=== PATIENT | female | born 1965 | race Hispanic/Latino ===

== ENCOUNTER 2022-04-23 22:38 | Observation (INO) | payer OTHER ==
[~2022-04-23] VITALS: Ht 167.6 cm; Wt 98.4 kg
[2022-04-23] MEDS ORDERED: SODIUM CHLORIDE 0.9% 1000ML 1,000 ML IV STA (22:54)
[2022-04-23] MEDS ORDERED: ONDANSETRON HCL INJ 2MG/ML 2ML 2 MG/ML VIAL IV PRN (23:00)
[2022-04-23 23:15] LABS: BASOPHILS # (AUTO) 0.1 (0.0-0.1); BASOPHILS % 0.4 % (0.0-1.0); EOSINOPHILS % 0.2 % (0.0-6.0); HEMATOCRIT 40.1 % (34.2-44.1); HEMOGLOBIN 12.9 g/dL (12.0-16.0); LYMPHOCYTES # (AUTO) 1.8 (1.0-3.2); LYMPHOCYTES % 11.2 % (18.0-39.1); MEAN CORPUSCULAR HEMOGLOBIN 29.3 pg (28-32); MEAN CORPUSCULAR HGB CONC 32.2 g/dL (31-35); MEAN CORPUSCULAR VOLUME 90.9 fL (81-99); MONOCYTES # (AUTO) 1.2 (0.2-0.8); MONOCYTES % 7.5 % (4.4-11.3); NEUTROPHILS # (AUTO) 12.7 (2.1-6.9); NEUTROPHILS % 80.3 % (38.7-80.0); PLATELET COUNT 249 x10e3/uL (140-360); RED BLOOD COUNT 4.41 x10e6/uL (3.6-5.1); RED CELL DISTRIBUTION WIDTH 12.1 % (11.7-14.4)
[2022-04-23 23:40] LABS: CLARITY,URINE HAZY (CLEAR); COLOR,URINE YELLOW (YELLOW); LEUKOCYTE ESTERASE ,URINE NEGATIVE (NEGATIVE)
[2022-04-23 23:41] LABS: BACTERIA,URINE MODERATE /HPF; EPITHELIAL CELLS,URINE MANY /LPF; KETONES,URINE 1+ (NEGATIVE); NITRITE,URINE NEGATIVE (NEGATIVE); PROTEIN,URINE DIPSTICK NEGATIVE (NEGATIVE); RBC,URINE 0-5 /HPF (0-5); URINE UROBILINOGEN 0.2 mg/dL (0.2 - 1); WBC,URINE (MAN) 0-5 /HPF (0-5)
[2022-04-23 23:44] LABS: ANION GAP 16.4 mmol/L (8-16); CALCIUM 9.7 mg/dL (8.4-10.2); CREATININE, SERUM 0.77 mg/dL (0.57-1.11); POTASSIUM 3.4 mmol/L (3.5-5.1)
[2022-04-24] VITALS (8 sets, daily range): BP systolic 103–127; BP diastolic 59–72
[2022-04-24] MEDS ORDERED: FENTANYL CITRATE/PF 100MCG/2 ML INJ IV PRN
[2022-04-24] MEDS ORDERED: ACETAMINOPHEN 325 MG TAB PO ONE
[2022-04-24] MEDS ORDERED: IOPAMIDOL 370 MG/ML 100 ML INFUS..BTL INJ ONE (00:15)
[2022-04-24] MEDS ORDERED: SODIUM CHLORIDE 0.9% 1000ML 1,000 ML IV SCH (01:00)
[2022-04-24] MEDS ORDERED: PIPERACILLIN/TAZOBACTAM 4.5 GM in SODIUM CHLORIDE 0.9% 100 ML IV SCH (01:00)
[2022-04-24] MEDS ORDERED: Morphine 4mg INJECTION 4 MG/ML INJ IV PRN (01:00)
[2022-04-24] MEDS ORDERED: ONDANSETRON HCL INJ 2MG/ML 2ML 2 MG/ML VIAL IV PRN ×2 (01:00→13:30)
[2022-04-24] MEDS ORDERED: PIPERACILLIN/TAZOBACTAM 4.5GM 4.5 GM VIAL ONE (01:04)
[2022-04-24] MEDS ORDERED: SODIUM CHLORIDE 0.9% 100 ML ONE (01:05)
[2022-04-24] MEDS: SODIUM CHLORIDE 0.9% 1000ML 1,000 ML IV SCH ×5 (01:11→23:50)
[2022-04-24] MEDS ORDERED: LOSARTAN POTASS25 MG PO (03:57)
[2022-04-24] MEDS ORDERED: ATORVASTATIN CA10 MG PO (03:57)
[2022-04-24] MEDS ORDERED: VITAMIN PO (03:57)
[2022-04-24] MEDS ORDERED: HYDROCHLOROTH12.5 MG PO (03:57)
[2022-04-24] MEDS ORDERED: METFORMIN HCL500 MG PO (03:57)
[2022-04-24] MEDS ORDERED: LIDOCAINE HCL 2% LOCAL INJ 5 ML SDV VIAL INJ ONE (11:20)
[2022-04-24] MEDS ORDERED: POVIDONE IODINE 0.05% 0.05 % ML PO ONE (11:20)
[2022-04-24] MEDS ORDERED: SEVOFLURANE INHAL SOLN 250 ML PEN BTL ONE (11:20)
[2022-04-24] MEDS ORDERED: DEXAMETHASONE SOD PHOS INJ 4 MG/ML SDV ONE (11:20)
[2022-04-24] MEDS ORDERED: KETOROLAC TROMETHAMINE 30 MG/ML VIAL ONE (11:20)
[2022-04-24] MEDS ORDERED: PROPOFOL IV EMULSION 10 MG/ML 20 ML VIAL ONE (11:20)
[2022-04-24] MEDS ORDERED: ATROPINE SULFATE 1 MG/ML VIAL ONE (11:20)
[2022-04-24] MEDS ORDERED: PHENYLEPHRINE HCL 1% 10 MG/ML VIAL ONE (11:20)
[2022-04-24] MEDS ORDERED: ROCURONIUM BROMIDE 10 MG/ML 5ML VIAL IV ONE (11:20)
[2022-04-24] MEDS ORDERED: NEOSTIGMINE 1 MG/ML 10ML VIAL ONE (11:20)
[2022-04-24] MEDS ORDERED: GLYCOPYRROLATE INJ 0.2 MG/ML VIAL ONE (11:20)
[2022-04-24] MEDS ORDERED: ONDANSETRON HCL INJ 2MG/ML 2ML 2 MG/ML VIAL ONE (11:20)
[2022-04-24] MEDS: PIPERACILLIN/TAZOBACTAM 4.5 GM in SODIUM CHLORIDE 0.9% 100 ML IV SCH ×2 (12:00→23:50)
[2022-04-24] MEDS ORDERED: BUPIVACAINE 0.25% 30ML SDV ONE (12:21)
[2022-04-24] MEDS ORDERED: MIDAZOLAM HCL 2 MG/2 ML VIAL ONE (12:53)
[2022-04-24] MEDS ORDERED: FENTANYL CITRATE/PF 100MCG/2 ML INJ ONE (12:53)
[2022-04-24] MEDS ORDERED: HYDROMORPHONE 1MG/1ML INJ IV PRN (13:30)
[2022-04-24] MEDS ORDERED: HYDROCODONE/APAP 7.5MG-325MG 1 EA TAB PO PRN (13:30)
[2022-04-25] VITALS: BP 105/62
[2022-04-25 04:00] VITALS: BP 106/60
[2022-04-25] MEDS: SODIUM CHLORIDE 0.9% 1000ML 1,000 ML IV SCH ×3 (04:00→16:45)
[2022-04-25 05:27] LABS: BASOPHILS % 0.1 % (0.0-1.0); HEMATOCRIT 33.2 % (34.2-44.1); HEMOGLOBIN 10.4 g/dL (12.0-16.0); LYMPHOCYTES # (AUTO) 1.1 (1.0-3.2); LYMPHOCYTES % 7.9 % (18.0-39.1); MEAN CORPUSCULAR HEMOGLOBIN 29.1 pg (28-32); MEAN CORPUSCULAR HGB CONC 31.3 g/dL (31-35); MEAN CORPUSCULAR VOLUME 92.7 fL (81-99); MONOCYTES # (AUTO) 0.8 (0.2-0.8); NEUTROPHILS % 85.7 % (38.7-80.0); PLATELET COUNT 207 x10e3/uL (140-360); RED BLOOD COUNT 3.58 x10e6/uL (3.6-5.1); RED CELL DISTRIBUTION WIDTH 11.9 % (11.7-14.4)
[2022-04-25 05:52] LABS: ANION GAP 14.6 mmol/L (8-16); CALCIUM 8.5 mg/dL (8.4-10.2); CREATININE, SERUM 0.64 mg/dL (0.57-1.11); POTASSIUM 3.6 mmol/L (3.5-5.1)
[2022-04-25 08:03] VITALS: BP 106/54
[2022-04-25 08:20] VITALS: BP 106/54
[2022-04-25 12:34] VITALS: BP 120/68
[2022-04-25] MEDS: PIPERACILLIN/TAZOBACTAM 4.5 GM in SODIUM CHLORIDE 0.9% 100 ML IV SCH (13:30)
[2022-04-25 16:19] VITALS: BP 106/80
[2022-04-25] MEDS ORDERED: ONDANSETRON HCL 4 MG ORAL DISINTEGRATING TAB PO PRN (18:00)
== END 2022-04-25 18:44 | disposition home or self-care (01) ==
LOC: ER 22:38 → ERHOLD 04-24 00:56 → UNDOADMIN 04-24 00:56 → ERHOLD 04-24 01:14 → INTOOBSV 04-24 01:14 → MED/SURG 04-24 01:14
PROVIDERS: ADMIT Surgery; ATTEND Surgery
DX: K35.80 Unspecified acute appendicitis (principal); I10 Essential (primary) hypertension; Z20.822 Contact with and (suspected) exposure to COVID-19
CPT/HCPCS: 36415 ×2; 44970; 74177; 80048; 80053; 81001; 83605; 83690; 85025 ×2; 87040; 88304; 94799; 99284; C1766; G0378 ×2; J0461; J1100; J1885; J2001; J2250; J2270; J2370; J2405 ×2; J2543; J2704; J2710; J3010; J7030 ×3; J7050; Q9967; U0002

== ENCOUNTER 2022-04-27 23:51 | Emergency (ER) | payer OTHER ==
[~2022-04-27] VITALS: Ht 167.6 cm; Wt 98.4 kg
[~2022-04-27 23:51] MED LIST: ATORVASTATIN CA10 MG PO; HYDROCHLOROTH12.5 MG PO; LOSARTAN POTASS25 MG PO; METFORMIN HCL500 MG PO; VITAMIN PO
[2022-04-28] MEDS ORDERED: IBUPROFEN 200 MG TAB ONE (00:35)
[2022-04-28] MEDS ORDERED: IBUPROFEN 600 MG TAB ONE (00:35)
== END 2022-04-28 00:31 | disposition home or self-care (01) ==
LOC: ER 23:57
DX: I80.03 Phlebitis and thrombophlebitis of superficial vessels of lower extremities, bilateral (principal); Z98.890 Other specified postprocedural states; I10 Essential (primary) hypertension; E11.9 Type 2 diabetes mellitus without complications
CPT/HCPCS: 99282